=== PATIENT | female | born 1965 | race Hispanic/Latino ===

== ENCOUNTER → 2017-11-07 | Outpatient (CLI) | payer OTHER ==
[~2017-11-07] MED LIST: IOPAMIDOL 370 MG/ML 200 ML INFUS..BTL INJ ONE; SODIUM CHLORIDE 0.9% 50ML 50 ML ONE
--- NOTE | 2017-11-07 11:07 | Diagnostic Imaging Report ---
PROCEDURE: CT ABDOMEN AND PELVIS WITH CONTRAST TECHNIQUE: The abdomen and pelvis were scanned utilizing a multidetector helical scanner from the diaphragm to the lesser trochanter after the IV administration of 100 cc of Isovue 370 and the oral administration of 900 mL of water. Coronal and sagittal multiplanar reformations were obtained. COMPARISON: None. INDICATIONS: GEN ABDOMINAL PAIN FINDINGS: LOWER THORAX: Normal. HEPATOBILIARY: Diffuse hepatic steatosis. No focal hepatic lesions. No biliary ductal dilatation. SPLEEN: No splenomegaly. PANCREAS: No focal masses or ductal dilatation. ADRENALS: No adrenal nodules. KIDNEYS/URETERS: No hydronephrosis, stones, or solid mass lesions. PELVIC ORGANS/BLADDER: Unremarkable. PERITONEUM / RETROPERITONEUM: No free air or fluid. LYMPH NODES: No lymphadenopathy. VESSELS: Unremarkable. GI TRACT: No distention or wall thickening. The appendix is normal BONES AND SOFT TISSUES: Unremarkable. IMPRESSION: 1. No specific findings to account for the patient's symptoms. 2. Diffuse hepatic steatosis. Dictated by: Moncho Garcia M.D. on 11/07/2017 at 11:11 Electronically approved by: Moncho Garcia M.D. on 11/07/2017 at 11:11
[2017-11-07 11:54] LABS: BLOOD UREA NITROGEN 8 mg/dL (7-26); BUN/CREATININE RATIO 12 (6-25); CREATININE, SERUM 0.68 mg/dL (0.57-1.11); EST GLOMERULAR FILTRATION RATE > 60 ML/MIN (60-)
== END ==
LOC: CT 08:41
PROVIDERS: ATTEND Internal Medicine Gastroenterology
DX: R10.84 Generalized abdominal pain (principal)
CPT/HCPCS: 36415; 74177; 81025; 82565; 84520; Q9967

== ENCOUNTER → 2017-11-13 | Day surgery (SDC) | payer OTHER ==
[~2017-11-13] MED LIST changes: -IOPAMIDOL 370 MG/ML 200 ML INFUS..BTL INJ ONE; +KETAMINE HCL INJ 50 MG/ML 10 ML VIAL ONE; +LIDOCAINE HCL 2% LOCAL INJ 5 ML SDV VIAL INJ ONE; +LOSARTAN-HCTZ1 EAC2 PO; +MIDAZOLAM HCL 2 MG/2 ML VIAL ONE; +PROPOFOL IV EMULSION 10 MG/ML 50 ML VIAL ONE; -SODIUM CHLORIDE 0.9% 50ML 50 ML ONE
== END | disposition home or self-care (01) ==
LOC: OR 06:56
PROVIDERS: ATTEND Internal Medicine Gastroenterology
DX: K29.50 Unspecified chronic gastritis without bleeding (principal); D12.2 Benign neoplasm of ascending colon; K44.9 Diaphragmatic hernia without obstruction or gangrene; K59.09 Other constipation; K64.8 Other hemorrhoids; I10 Essential (primary) hypertension; R00.1 Bradycardia, unspecified; F17.210 Nicotine dependence, cigarettes, uncomplicated; Z88.8 Allergy status to other drugs, medicaments and biological substances; Z01.810 Encounter for preprocedural cardiovascular examination; Z68.41 Body mass index [BMI] 40.0-44.9, adult
CPT/HCPCS: 43239; 45385; 81025; 93005; J2001; J2250

== ENCOUNTER 2017-11-14 10:02 | Emergency (ER) | payer OTHER ==
[~2017-11-14] VITALS: Ht 152.4 cm; Wt 97.5 kg
[~2017-11-14 10:02] MED LIST changes: -KETAMINE HCL INJ 50 MG/ML 10 ML VIAL ONE; -LIDOCAINE HCL 2% LOCAL INJ 5 ML SDV VIAL INJ ONE; -MIDAZOLAM HCL 2 MG/2 ML VIAL ONE; -PROPOFOL IV EMULSION 10 MG/ML 50 ML VIAL ONE
[2017-11-14] MEDS ORDERED: KETOROLAC TROMETHAMINE 30 MG/ML VIAL IV STA (10:23)
--- NOTE | 2017-11-14 14:59 | Diagnostic Imaging Report ---
History: Pain after procedure. Difficulty swallowing. Comparison studies: None Technique: Axial, coronal and sagittal images from the skull base to the thoracic inlet. Coronal and sagittal images reconstructed from the axial data. Intravenous contrast: 100 cc of Isovue 370. Findings: Soft tissues: Mild nonspecific fatty stranding at the level of the inferior symphysis mandible. No other abnormalities. Masses: None. Lymph nodes: No radiographically significant adenopathy. Small calcified lymph node at the left mediastinum body in the AP window. Vessels: Arteries and veins are patent. Glands (thyroid, parotid and submandibular): Normal in size and symmetric. No masses. Orbits: No abnormalities. Paranasal sinuses: Clear. Temporal bones: No abnormalities. Skull base and facial bones: Intact. Cervical spine: Mild degenerative changes of the C-spine with patent canal and foramina IMPRESSION: 1. Nonspecific mild fatty stranding inferior to the symphysis mandible. No other neck abnormality or finding to explain patient's symptoms. Signed by: DR Gee Rodriguez M.D. on 11/14/2017 2:56 PM
[2017-11-14] MEDS ORDERED: IOPAMIDOL 370 MG/ML 200 ML INFUS..BTL INJ ONE (19:33)
[2017-11-14] MEDS ORDERED: SODIUM CHLORIDE 0.9% 50ML 50 ML ONE (19:33)
== END 2017-11-14 16:11 | disposition home or self-care (01) ==
LOC: ER 10:02
DX: M54.2 Cervicalgia (principal); S10.83XA Contusion of other specified part of neck, initial encounter; F17.210 Nicotine dependence, cigarettes, uncomplicated
CPT/HCPCS: 70491; 99283; J1885; Q9967